=== PATIENT | female | born 1945 | race Two or more races ===

== ENCOUNTER 2018-07-02 18:22 | Emergency (ER) | payer OTHER ==
[~2018-07-02] VITALS: Ht 165.1 cm; Wt 68.0 kg
[2018-07-02] MEDS ORDERED: methylPREDNISolone SOD SUCC 125 MG/2 ML VL IV ONE (18:45)
[2018-07-02] MEDS ORDERED: ALBUTEROL SULF 2.5 MG/0.5ML(0.5%) NEB SOLN NEB ONE (19:15)
[2018-07-02] MEDS ORDERED: LABETALOL HCL 5 MG/ML ML 20ML VIAL IV ONE ×2 (19:15→20:45)
[2018-07-02] MEDS ORDERED: IPRATROPIUM BROM 0.5 MG/2.5ML INH SOL NEB ONE (19:15)
[2018-07-02 20:08] LABS: Basophils # (auto) 0.1 uL; Basophils % (auto) 0.8 % (0.0-2.0); Eosinophils # (auto) 0.1 uL; Eosinophils % (auto) 0.9 % (0.0-7.0); Hemoglobin 9.5 g/dL (12.2-16.2); Lymphocytes # (auto) 0.9 uL; Lymphocytes % (auto) 10.5 % (10.0-50.0); Mean Corpuscular Hemoglobin 28.2 pg (28.0-32.0); Mean Corpuscular Hgb Conc. 32.8 g/dL (32.0-36.0); Mean Corpuscular Volume 86.1 fL (80.0-100.0); Monocytes # (auto) 0.5 uL; Monocytes % (auto) 5.6 % (0.0-12.0); Neutrophils % (auto) 82.2 % (37.0-80.0); Platelet Count (auto) 219 10^3/uL (140-450); Red Blood Cells 3.37 10^6/uL (4.0-5.20); Red Cell Distribution Width 14.3 % (11.8-14.3); White Blood Cell 8.5 10^3/uL (4.4-10.8)
[2018-07-02 20:15] VITALS: BP 239/108
--- NOTE | 2018-07-02 20:15 | NUR ---
Respiratory note: AT BEDSIDE FOR ROUTINE BIPAP CHECK, NO CHANGES MADE AT THIS TIME, BS ARE DIMINISHED T/O, PTS FAMILY AT BEDSIDE. WILL CONTINUE TO MONITOR Q2 AND PRN. JABARI DE LOS SANTOS AWARE OF BP.
[2018-07-02 20:26] LABS: BUN/Creatinine Ratio 7.5; Calcium 8.1 mg/dL (8.5-10.1); Potassium 4.2 mmol/L (3.5-5.1)
[2018-07-02 20:31] LABS: Urine Bacteria NONE SEEN /hpf (None Seen); Urine Blood Negative /uL (Negative); Urine Specific Gravity 1.011 (1.001-1.035); Urine WBC 35 /hpf (0 - 5)
[2018-07-02 20:31] LABS: Bilirubin, Total 0.6 mg/dL (0.2-1.0); Total Protein 7.7 g/dL (6.4-8.2)
[2018-07-02 20:32] LABS: INR 0.95 (0.9-1.15); Partial Thromboplastin Time 26.6 sec (23.78-33.04); Prothrombin Time 10.2 sec (9.27-12.13)
[2018-07-02 21:03] VITALS: BP 239/108
[2018-07-02] MEDS ORDERED: cefTRIAXone 1GM/50ML D5W 50 ML IV ONE (21:45)
[2018-07-02] MEDS ORDERED: hydrALAZINE HCL 20 MG/ML VL IV ONE (22:00)
[2018-07-02] MEDS ORDERED: FUROSEMIDE 100 MG/10ML VIAL IV ONE (23:30)
[2018-07-03] MEDS ORDERED: hydrALAZINE HCL 20 MG/ML VL IV ONE (01:45)
[2018-07-03 02:34] VITALS: BP 120/54
== END 2018-07-02 22:33 | disposition short-term general hospital (02) ==
LOC: EDBD 18:22 → ER 18:28
DX: J98.01 Acute bronchospasm (principal); I16.0 Hypertensive urgency; N39.0 Urinary tract infection, site not specified; J44.9 Chronic obstructive pulmonary disease, unspecified; E11.22 Type 2 diabetes mellitus with diabetic chronic kidney disease; I13.2 Hypertensive heart and chronic kidney disease with heart failure and with stage 5 chronic kidney disease, or end stage renal disease; N18.6 End stage renal disease; I50.9 Heart failure, unspecified; Z79.4 Long term (current) use of insulin
CPT/HCPCS: 36415; 36600; 71045; 80053; 81001; 82805; 82962; 83735; 83880; 84484; 85025; 85610; 85730; 87040; 87086; 93005; 94640; 94660; 94761; 96365; 96366; 96375; 96376; 99285; J0360; J0696; J1940; J2930; J7611; J7644

== ENCOUNTER 2019-01-03 05:12 | Inpatient (IN) | payer OTHER ==
[~2019-01-03] VITALS: Ht 162.6 cm; Wt 68.0 kg
[2019-01-03] MEDS ORDERED: ALBUTEROL SULF 2.5 MG/0.5ML(0.5%) NEB SOLN NEB ONE (05:30)
[2019-01-03] MEDS ORDERED: FUROSEMIDE 20 MG/2 ML VIAL IV ONE (05:30)
[2019-01-03] MEDS ORDERED: cloNIDine HCL 0.1 MG TAB PO ONE (05:30)
[2019-01-03] MEDS ORDERED: IPRATROPIUM BROM 0.5 MG/2.5ML INH SOL NEB ONE (05:30)
[2019-01-03 08:12] LABS: Basophils # (auto) 0 uL; Basophils % (auto) 0.2 % (0.0-2.0); Eosinophils # (auto) 0 uL; Eosinophils % (auto) 0.1 % (0.0-7.0); Hematocrit 26.7 % (36.0-46.0); Hemoglobin 8.9 g/dL (12.2-16.2); Lymphocytes # (auto) 0.6 uL; Lymphocytes % (auto) 4.3 % (10.0-50.0); Mean Corpuscular Hemoglobin 29.9 pg (28.0-32.0); Mean Corpuscular Hgb Conc. 33.6 g/dL (32.0-36.0); Mean Corpuscular Volume 89.2 fL (80.0-100.0); Monocytes # (auto) 0.6 uL; Neutrophils # (auto) 13.5 uL; Neutrophils % (auto) 91.4 % (37.0-80.0); Platelet Count (auto) 204 10^3/uL (140-450); Red Blood Cells 2.99 10^6/uL (4.0-5.20); Red Cell Distribution Width 14.6 % (11.8-14.3); White Blood Cell 14.8 10^3/uL (4.4-10.8)
[2019-01-03 08:40] LABS: Albumin 2.9 g/dL (3.4-5.0); BUN/Creatinine Ratio 5.8; Calcium 8.3 mg/dL (8.5-10.1); Potassium 3.6 mmol/L (3.5-5.1)
[2019-01-03 08:45] LABS: Bilirubin, Total 0.4 mg/dL (0.2-1.0); Total Protein 6.9 g/dL (6.4-8.2)
[2019-01-03] MEDS ORDERED: cefTRIAXone 1GM/50ML D5W 50 ML IV ONE (13:45)
[2019-01-03] MEDS ORDERED: DEXTROSE (50%) 50ML SYRG IV PRN (16:00)
[2019-01-03] MEDS ORDERED: NITROGLYCERIN 0.4 MG SL TAB SL PRN (16:00)
[2019-01-03] MEDS ORDERED: NITROGLYCERIN 0.4MG/HR TOPICAL PATCH TD ONE (16:00)
[2019-01-03] MEDS ORDERED: HEPARIN SODIUM (PORCINE) 5000 UNITS/ML 1ML VIAL IV ONE (16:00)
[2019-01-03] MEDS ORDERED: MORPHINE SULF INJ 2 MG/ML SYRINGE 1ML IV PRN (16:00)
[2019-01-03] MEDS ORDERED: BUMETANIDE 2.5mg/10ml (0.25 mg/ml) INJ IV ONE (16:00)
[2019-01-03] MEDS ORDERED: VANCOMYCIN PER PHARMACY 0 MG IV SCH (16:00)
[2019-01-03] MEDS ORDERED: hydrALAZINE HCL 20 MG/ML VL IV PRN (16:00)
[2019-01-03] MEDS ORDERED: ASPirin-EC 81 mg tab PO ONE (16:37)
[2019-01-03 16:43] LABS: Basophils # (auto) 0 uL; Basophils % (auto) 0.3 % (0.0-2.0); Eosinophils # (auto) 0 uL; Eosinophils % (auto) 0.1 % (0.0-7.0); Hematocrit 29.6 % (36.0-46.0); Hemoglobin 9.8 g/dL (12.2-16.2); Lymphocytes # (auto) 0.9 uL; Lymphocytes % (auto) 6.8 % (10.0-50.0); Mean Corpuscular Hemoglobin 29.7 pg (28.0-32.0); Mean Corpuscular Hgb Conc. 33.3 g/dL (32.0-36.0); Mean Corpuscular Volume 89.4 fL (80.0-100.0); Monocytes # (auto) 0.6 uL; Monocytes % (auto) 4.7 % (0.0-12.0); Neutrophils # (auto) 11.9 uL; Neutrophils % (auto) 88.1 % (37.0-80.0); Platelet Count (auto) 232 10^3/uL (140-450); Red Blood Cells 3.31 10^6/uL (4.0-5.20); Red Cell Distribution Width 14.3 % (11.8-14.3); White Blood Cell 13.5 10^3/uL (4.4-10.8)
[2019-01-03] MEDS ORDERED: VANCOMYCIN 1GM/250ML 250 ML IV ONE (17:00)
[2019-01-03] MEDS: InsuLIN REG 1unit/0.01ml Soln (100units/ml) SC SCH ×2 (17:00→22:02)
[2019-01-03 17:04] LABS: INR 0.95 (0.9-1.15)
[2019-01-03 17:54] VITALS: BP 221/128
[2019-01-03] MEDS ORDERED: NITROGLYCERIN 50MG/250ML 250 ML IV ONE (17:59)
[2019-01-03 18:13] VITALS: BP 221/128
[2019-01-03] MEDS: HEPARIN DRIP/D5W 100UNITS/ML 250 ML IV SCH (18:15)
[2019-01-03] MEDS ORDERED: NITROGLYCERIN 50MG/250ML 250 ML IV SCH (19:00)
[2019-01-03] MEDS: ONDANSETRON HCL 4 MG/2 ML VIAL IV PRN (19:46)
[2019-01-03 19:52] VITALS: BP 158/86
[2019-01-03] MEDS: ACCU-CHEK COMFORT CURVE STRIP VI SCH ×2 (20:00→22:02)
[2019-01-03] MEDS: FAMOTIDINE 20 MG TAB PO SCH (20:00)
[2019-01-03] MEDS ORDERED: FUROSEMIDE 100 MG/10ML VIAL IV ONE (20:45)
[2019-01-03 21:19] LABS: Urine Bacteria FEW /hpf (None Seen); Urine Blood TRACE /uL (Negative); Urine Specific Gravity 1.007 (1.001-1.035); Urine WBC 122 /hpf (0 - 5); Urine WBC Clumps PRESENT /hpf (None Seen)
[2019-01-03] MEDS ORDERED: ATORVASTATIN 20 MG TAB PO SCH (22:00)
[2019-01-03] MEDS: METOPROLOL TARTRATE 25 MG TAB PO SCH (22:02)
[2019-01-03] MEDS ORDERED: PROMETHAZINE HCL 25 MG/ML 1ML IV ONE (22:15)
[2019-01-03 22:20] VITALS: BP 169/91
--- NOTE | 2019-01-03 22:20 | NUR ---
Respiratory note: ENTERED ROOM FOR BIPAP CHECK. PT FOUND OFF BIPAP, ON 5L NC, SATS 87%, HR 137, RR 26. PT VOMITTING. SWITCHED PT TO 10L OXYMIZER, SATS NOW AT 95%, HR 133, RR 27. PT STILL VOMITTING AND NAUSEATED, BIPAP PLACED ON STANDBY AT THIS TIME. BREATH SOUNDS COURSE CRACKLES THROUGHOUT. RN INQUIRING ABOUT BREATHING TX, PT DOES NOT HAVE BREATHING TXS ORDERED AT THIS TIME, AND EXPLAINED TO RN BREATHING TX WILL NOT HELP WITH FLUID OVERLOAD.
[2019-01-03] MEDS ORDERED: LORazepam 2MG/ML-1ML VIAL ONE (22:41)
[2019-01-03] MEDS ORDERED: LORazepam 2MG/ML-1ML VIAL IV ONE (22:45)
[2019-01-04] MEDS: MORPHINE SULF INJ 2 MG/ML SYRINGE 1ML IV PRN ×3 (01:20→10:37)
[2019-01-04 01:57] LABS: Partial Thromboplastin Time 67.4 sec (23.64-32.05)
[2019-01-04] MEDS ORDERED: LEVALBUTEROL HCL 1.25 MG/3 ML NEB NEB STA (06:12)
[2019-01-04] MEDS: ACCU-CHEK COMFORT CURVE STRIP VI SCH ×3 (06:48→17:20)
[2019-01-04 06:51] LABS: Basophils # (auto) 0.1 uL; Basophils % (auto) 0.5 % (0.0-2.0); Eosinophils # (auto) 0 uL; Eosinophils % (auto) 0.1 % (0.0-7.0); Hemoglobin 9.7 g/dL (12.2-16.2); Lymphocytes # (auto) 1.3 uL; Lymphocytes % (auto) 10.3 % (10.0-50.0); Mean Corpuscular Hemoglobin 29.9 pg (28.0-32.0); Mean Corpuscular Hgb Conc. 33.6 g/dL (32.0-36.0); Mean Corpuscular Volume 89.1 fL (80.0-100.0); Monocytes # (auto) 0.6 uL; Neutrophils # (auto) 10.3 uL; Neutrophils % (auto) 84.1 % (37.0-80.0); Platelet Count (auto) 210 10^3/uL (140-450); Red Blood Cells 3.25 10^6/uL (4.0-5.20); White Blood Cell 12.3 10^3/uL (4.4-10.8)
[2019-01-04] MEDS: InsuLIN REG 1unit/0.01ml Soln (100units/ml) SC SCH ×3 (06:54→17:20)
[2019-01-04 07:07] LABS: INR 1.02 (0.9-1.15); Partial Thromboplastin Time 64.9 sec (23.64-32.05)
[2019-01-04 07:38] LABS: BUN/Creatinine Ratio 5.8; Calcium 8.4 mg/dL (8.5-10.1); Potassium 4.2 mmol/L (3.5-5.1)
[2019-01-04] MEDS ORDERED: cefTRIAXone 1GM/50ML D5W 50 ML IV SCH (09:00)
[2019-01-04] MEDS ORDERED: ASPirin-EC 81 mg tab PO SCH (10:00)
[2019-01-04] MEDS ORDERED: LISINOPRIL 10 MG TAB PO SCH (10:00)
[2019-01-04] MEDS ORDERED: NITROGLYCERIN 0.4MG/HR TOPICAL PATCH TD SCH (10:00)
[2019-01-04] MEDS: METOPROLOL TARTRATE 25 MG TAB PO SCH ×2 (10:02→11:27)
[2019-01-04] MEDS: FAMOTIDINE 20 MG TAB PO SCH (10:02)
[2019-01-04 10:20] VITALS: BP 127/64
[2019-01-04] MEDS: ONDANSETRON HCL 4 MG/2 ML VIAL IV PRN (10:37)
[2019-01-04 12:30] VITALS: BP 146/74
[2019-01-04 13:38] LABS: INR 1.07 (0.9-1.15)
[2019-01-04] MEDS ORDERED: ACETAMINOPHEN 650 MG RECT SUPP PR ONE ×2 (15:00→15:02)
[2019-01-04] MEDS ORDERED: ETOMIDATE (2MG/ML) 20ML VIAL IV ONE ×2 (15:30→15:31)
[2019-01-04] MEDS ORDERED: SUCCINYLCHOLINE CHLORIDE 20 MG/ML 10ML VIAL IV ONE ×2 (15:30→15:31)
[2019-01-04] MEDS ORDERED: MIDAZOLAM DRIP 50 mg/50mL 50 ML IV ONE (15:32)
[2019-01-04] MEDS: MIDAZOLAM DRIP 50 mg/50mL 50 ML IV SCH ×2 (15:39→18:33)
[2019-01-04 15:40] VITALS: BP 152/65
[2019-01-04] MEDS: HEPARIN DRIP/D5W 100UNITS/ML 250 ML IV SCH (15:50)
[2019-01-04] MEDS ORDERED: VANCOMYCIN 500 MG in D5W 5% 100 ML IV ONE (17:00)
[2019-01-04] MEDS ORDERED: MANNITOL 20% SOLN 100 gm/500ml 250 ML IV ONE (17:30)
[2019-01-04] MEDS ORDERED: PROTAMINE SULFATE 50 MG in SODIUM CHL 0.9% 50 ML IV ONE (17:30)
[2019-01-04] MEDS ORDERED: MANNITOL 20 % (20GM/100ML) 500 ML IV ONE (17:39)
[2019-01-04 18:01] VITALS: BP 137/62
[2019-01-04 18:25] VITALS: BP 148/70
[2019-01-04] MEDS ORDERED: DESMOPRESSIN INJECTION 20 MCG in SODIUM CHL 0.9% 50 ML IV ONE (18:30)
== END 2019-01-04 19:03 | disposition short-term general hospital (02) | DRG 871 ==
LOC: EDBD 05:12 → ER 05:12 → TELE 05:13
PROVIDERS: ADMIT Nurse Practitioner Acute Care; ATTEND Nurse Practitioner Acute Care
PROC: 5A09457 Assistance with Respiratory Ventilation, 24-96 Consecutive Hours, Continuous Positive Airway Pressure (ICD-10-PCS; principal; 2019-01-03)
DX: A41.9 Sepsis, unspecified organism (principal); I21.4 Non-ST elevation (NSTEMI) myocardial infarction; N18.6 End stage renal disease; I50.43 Acute on chronic combined systolic (congestive) and diastolic (congestive) heart failure; J96.01 Acute respiratory failure with hypoxia; R65.21 Severe sepsis with septic shock; J18.9 Pneumonia, unspecified organism; I62.01 Nontraumatic acute subdural hemorrhage; J44.1 Chronic obstructive pulmonary disease with (acute) exacerbation; J45.901 Unspecified asthma with (acute) exacerbation; I13.2 Hypertensive heart and chronic kidney disease with heart failure and with stage 5 chronic kidney disease, or end stage renal disease; I16.9 Hypertensive crisis, unspecified; Z99.11 Dependence on respirator [ventilator] status; E11.22 Type 2 diabetes mellitus with diabetic chronic kidney disease; D63.8 Anemia in other chronic diseases classified elsewhere; E03.9 Hypothyroidism, unspecified; E78.5 Hyperlipidemia, unspecified; E78.00 Pure hypercholesterolemia, unspecified; I25.10 Atherosclerotic heart disease of native coronary artery without angina pectoris; K21.9 Gastro-esophageal reflux disease without esophagitis; Z82.49 Family history of ischemic heart disease and other diseases of the circulatory system; Z79.4 Long term (current) use of insulin; Z99.2 Dependence on renal dialysis; Z87.891 Personal history of nicotine dependence
CPT/HCPCS: 31500; 36415; 36600; 51702; 70450; 71045; 80048; 80053; 80202; 81001; 82805; 82962; 83036; 83880; 84443; 84484; 85025; 85379; 85610; 85730; 86141; 87040; 87070; 87205; 93005; 93306; 94002; 94640; 94660; 96365; 96366; 96367; 96368; 96375; 96376; G0378; J0330; J0696; J1815; J2250; J2405; J7060